=== PATIENT | female | born 1965 | race Caucasian/White ===

== ENCOUNTER → 2016-08-14 | Outpatient (CLI) | payer BC ==
--- NOTE | 2016-08-14 16:17 | CT ---
CT Chest Without Contrast, High Resolution Indication: Recent cough or cold with nodule on chest x-ray from August 07, 2016. Comparison: Chest x-ray August 07, 2016. Technique: Noncontrast helical axial scanning from the thoracic inlet to the upper abdomen. Imaging w as performed in the prone and supine positions and with inspiration and expiration per the high-resol mark [facility] CT chest protocol. Reconstructions were performed in the coronal and sagittal planes. Dose redu ction technique was performed. Findings: There is some apical scarring, but no evidence of a pulmonary nodule. There is no significa nt airways disease. Some linear atelectatic change is present along the major fissure on the right. T here is no evidence of interstitial lung disease. There is no evidence of air trapping. The heart siz e is normal. The ascending aorta is 34 mm. Descending thoracic aorta is 24 mm. No significant axillar y or mediastinal adenopathy. Symmetric breast tissue is present. The bones exhibit degenerative changes only. No lytic or blastic lesions. Limited examination of the upper abdomen is unremarkable. Impression: 1. No suspicious pulmonary nodules. The area of nodularity may be related to the apical scarring or m ay be resolved. 2. Otherwise, normal high-resolution CT of the chest except for some linear scarring in the mid right lower lobe along the major fissure. This is a benign appearance.
== END ==
LOC: CIMAGING 15:05
PROVIDERS: ATTEND Internal Medicine
DX: R91.1 Solitary pulmonary nodule (principal)
CPT/HCPCS: 71250-PO